=== PATIENT | female | born 1985 | race Caucasian/White ===

== ENCOUNTER 2017-12-07 19:52 | Emergency (ER) | payer OTHER ==
[2017-12-07 20:35] LABS: ABS Basophils 0.1 10^3/ul (0-0.2); ABS Eosinophils 0 10^3/ul (0-0.6); ABS Lymphocytes 2.8 10^3/ul (1.0-4.8); ABS Monocytes 0.6 10^3/ul (0-0.8); ABS Neutrophils 7.4 10^3/ul (1.5-7.7); ABS Nucleated RBC 0 10^3/ul; Eosinophil % 0.2 % (0-6); Hematocrit 38 % (35-47); Hemoglobin 12.8 g/dl (12.0-16.0); Lymphocyte % 25.6 % (25-47); Mean Corpuscular HGB Conc 33 g/dl (31-36); Mean Corpuscular Hemoglobin 26 pg (27-31); Mean Corpuscular Volume 77 fL (80-97); Mean Platelet Volume 7.3 um3 (7.4-10.4); Nucleated Red Blood Cells % 0.1; Platelet Count 353 10^3/ul (150-450); Red Blood Count 4.98 10^6/ul (4.0-5.4); Red Cell Distribution Width 17 % (10.5-15); White Blood Count 10.8 10^3/ul (3.5-10.8)
[2017-12-07 20:38] LABS: Urine Appearance Cloudy; Urine Blood Negative (Negative); Urine Color Yellow; Urine Ketones 1+ (Negative); Urine Protein Negative (Negative); Urine Specific Gravity 1.027 (1.010-1.030); Urine Urobilinogen Negative (Negative)
--- NOTE | 2017-12-07 21:06 | ED ---
Edilson Hood Elizabeth, scribed for Kenny Zamora MD on 12/07/17 at 2024 . Psychiatric Complaint - HPI Summary HPI Summary: This patient is a 32 year old F presenting to [facility] with a chief complaint of increased anxiety that began today. Symptoms aggravated by nothing. Symptoms alleviated by nothing. Patient reports hyperventilating and uncontrollable crying today. She reports difficulty sleeping at night, difficulty getting out of bed during the day, feeling worried, feeling uncomfortable being alone for the last year. Pt notes that she has no primary care physician and therefore has not been prescribed any medications. Per triage note, pt denies SI or HI. - History Of Current Complaint Chief Complaint: EDPsychosocial Time Seen by Provider: 12/07/17 20:09 Hx Obtained From: Patient Onset/Duration: Sudden Onset, Resolved Timing: Intermittent Episode Lasting - minutes Severity Initially: Moderate Severity Currently: Mild Character: Anxious Aggravating Factor(s): Nothing Alleviating Factor(s): Nothing Associated Signs And Symptoms: Positive: Sleep Disturbance Has Suicidal: Denies: Thoughts Has Homicidal: Denies: Thoughts - Allergies/Home Medications Allergies/Adverse Reactions: Allergies Allergy/AdvReac Type Severity Reaction Status Date / Time No Known Allergies Allergy Verified 12/07/17 20:00 PMH/Surg Hx/FS Hx/Imm Hx Opthamlomology History: Denies: Hx Legally Blind EENT History: Denies: Hx Deafness Infectious Disease History: No Infectious Disease History: Denies: Traveled Outside the [place] in Last 30 Days - Family History Known Family History: Positive: Unknown - Social History Alcohol Use: Occasionally Substance Use Type: Reports: None Smoking Status (MU): Never Smoked Tobacco Review of Systems Negative: Fever Negative: Chest Pain Negative: Cough Negative: Vomiting Psychological: Other - insomnia at night, lethargy during the day, uncontrollable crying Positive: Anxious All Other Systems Reviewed And Are Negative: Yes Physical Exam - Summary Physical Exam Summary: Appearance: The patient is well-nourished in no acute distress and in no acute pain. Skin: The skin is warm and dry and skin color reflects adequate perfusion. HEENT: The head is normocephalic and atraumatic. The pupils are equal and reactive. The conjunctivae are clear and without drainage. Nares are patent and without drainage. Mouth reveals moist mucous membranes and the throat is without erythema and exudate. The external ears are intact. The ear canals are patent and without drainage. The tympanic membranes are intact. Neck: the neck is supple with full range of motion and non-tender. There are no carotid bruits. There is no neck vein distension. Respiratory: Chest is non-tender. Lungs are clear to auscultation and breath sounds are symmetrical and equal. Cardiovascular: Heart is regular rhythm and tachycardic. There is no murmur or rub auscultated. There is no peripheral edema and pulses are symmetrical and equal. Abdomen: The abdomen is soft and non-tender. There are normal bowel sounds heard in all four quadrants and there is no organomegaly palpated. Musculoskeletal: There is no back tenderness noted. Extremities are non-tender with full range of motion. There is good capillary refill. There is no peripheral edema or calf tenderness elicited. Neurological: Patient is alert and oriented to person, place and time. The patient has symmetrical motor strength in all four extremities. Cranial nerves are grossly intact. Deep tendon reflexes are symmetrical and equal in all four extremities. Psychiatric: The patient has an appropriate affect and does not exhibit any anxiety or depression. Triage Information Reviewed: Yes Vital Signs On Initial Exam: Initial Vitals Temp Pulse Resp BP Pulse Ox 98.8 F 73 16 131/73 100 12/07/17 19:54 12/07/17 19:54 12/07/17 19:54 12/07/17 19:54 12/07/17 19:54 Vital Signs Reviewed: Yes Diagnostics - Vital Signs Vital Signs Temp Pulse Resp BP Pulse Ox 12/07/17 19:54 98.8 F 73 16 131/73 100 - Laboratory Lab Results: Lab Results 12/07/17 12/07/17 12/07/17 Range/Units 20:26 20:29 20:29 WBC 10.8 (3.5-10.8) 10^3/ul RBC 4.98 (4.0-5.4) 10^6/ul Hgb 12.8 (12.0-16.0) g/dl Hct 38 (35-47) % MCV 77 L (80-97) fL MCH 26 L (27-31) pg MCHC 33 (31-36) g/dl RDW 17 H (10.5-15) % Plt Count 353 (150-450) 10^3/ul MPV 7.3 L (7.4-10.4) um3 Neut % (Auto) 68.4 (38-83) % Lymph % (Auto) 25.6 (25-47) % [place] % (Auto) 5.1 (0-7) % Eos % (Auto) 0.2 (0-6) % Baso % (Auto) 0.7 (0-2) % Absolute Neuts (auto) 7.4 (1.5-7.7) 10^3/ul Absolute Lymphs (auto) 2.8 (1.0-4.8) 10^3/ul Absolute Monos (auto) 0.6 (0-0.8) 10^3/ul Absolute Eos (auto) 0 (0-0.6) 10^3/ul Absolute Basos (auto) 0.1 (0-0.2) 10^3/ul Absolute Nucleated RBC 0 10^3/ul Nucleated RBC % 0.1 Sodium 139 (139-145) mmol/L Potassium 3.5 (3.5-5.0) mmol/L Chloride 104 (101-111) mmol/L Carbon Dioxide 27 (22-32) mmol/L Anion Gap 8 (2-11) mmol/L BUN 14 (6-24) mg/dL Creatinine 0.87 (0.51-0.95) mg/dL Est GFR ( Amer) 96.4 (>60) Est GFR (Non-Af Amer) 75.0 (>60) BUN/Creatinine Ratio 16.1 (8-20) Glucose 120 H (70-100) mg/dL Calcium 9.4 (8.6-10.3) mg/dL Total Bilirubin 0.60 (0.2-1.0) mg/dL AST 14 (13-39) U/L ALT 10 (7-52) U/L Alkaline Phosphatase 52 (34-104) U/L Total Protein 6.9 (6.4-8.9) g/dL Albumin 4.1 (3.2-5.2) g/dL Globulin 2.8 (2-4) g/dL Albumin/Globulin Ratio 1.5 (1-3) TSH Pending Beta HCG, Quant < 0.60 mIU/mL Urine Color Yellow Urine Appearance Cloudy Urine pH 5.0 (5-9) Ur Specific [place] 1.027 (1.010-1.030) Urine Protein Negative (Negative) Urine Ketones 1+ A (Negative) Urine Blood Negative (Negative) Urine Nitrate Negative (Negative) Urine Bilirubin Negative (Negative) Urine Urobilinogen Negative (Negative) Ur Leukocyte Esterase Trace A (Negative) Urine WBC (Auto) 2+(11-20/hpf) A (Absent) Urine RBC (Auto) Absent (Absent) Ur Squamous Epith Cells Present A (Absent) Urine Bacteria Absent (Absent) Urine Glucose Negative (Negative) Salicylates < 2.50 (<30) mg/dL Urine Opiates Screen (None Detect) Acetaminophen < 15 mcg/mL Ur Barbiturates Screen (None Detect) Ur Phencyclidine Scrn (None Detect) Ur Amphetamines Screen (None Detect) U Benzodiazepines Scrn (None Detect) Urine Cocaine Screen (None Detect) U Cannabinoids Screen (None Detect) Serum Alcohol < 10 (<10) mg/dL 12/07/17 Range/Units 20:29 WBC (3.5-10.8) 10^3/ul RBC (4.0-5.4) 10^6/ul Hgb (12.0-16.0) g/dl Hct (35-47) % MCV (80-97) fL MCH (27-31) pg MCHC (31-36) g/dl RDW (10.5-15) % Plt Count (150-450) 10^3/ul MPV (7.4-10.4) um3 Neut % (Auto) (38-83) % Lymph % (Auto) (25-47) % [place] % (Auto) (0-7) % Eos % (Auto) (0-6) % Baso % (Auto) (0-2) % Absolute Neuts (auto) (1.5-7.7) 10^3/ul Absolute Lymphs (auto) (1.0-4.8) 10^3/ul Absolute Monos (auto) (0-0.8) 10^3/ul Absolute Eos (auto) (0-0.6) 10^3/ul Absolute Basos (auto) (0-0.2) 10^3/ul Absolute Nucleated RBC 10^3/ul Nucleated RBC % Sodium (139-145) mmol/L Potassium (3.5-5.0) mmol/L Chloride (101-111) mmol/L Carbon Dioxide (22-32) mmol/L Anion Gap (2-11) mmol/L BUN (6-24) mg/dL Creatinine (0.51-0.95) mg/dL Est GFR ( Amer) (>60) Est GFR (Non-Af Amer) (>60) BUN/Creatinine Ratio (8-20) Glucose (70-100) mg/dL Calcium (8.6-10.3) mg/dL Total Bilirubin (0.2-1.0) mg/dL AST (13-39) U/L ALT (7-52) U/L Alkaline Phosphatase (34-104) U/L Total Protein (6.4-8.9) g/dL Albumin (3.2-5.2) g/dL Globulin (2-4) g/dL Albumin/Globulin Ratio (1-3) TSH Beta HCG, Quant mIU/mL Urine Color Urine Appearance Urine pH (5-9) Ur Specific [place] (1.010-1.030) Urine Protein (Negative) Urine Ketones (Negative) Urine Blood (Negative) Urine Nitrate (Negative) Urine Bilirubin (Negative) Urine Urobilinogen (Negative) Ur Leukocyte Esterase (Negative) Urine WBC (Auto) (Absent) Urine RBC (Auto) (Absent) Ur Squamous Epith Cells (Absent) Urine Bacteria (Absent) Urine Glucose (Negative) Salicylates (<30) mg/dL Urine Opiates Screen None detected (None Detect) Acetaminophen mcg/mL Ur Barbiturates Screen None detected (None Detect) Ur Phencyclidine Scrn None detected (None Detect) Ur Amphetamines Screen None detected (None Detect) U Benzodiazepines Scrn None detected (None Detect) Urine Cocaine Screen Presumptive positive A (None Detect) U Cannabinoids Screen None detected (None Detect) Serum Alcohol (<10) mg/dL Result Diagrams: 12/07/17 20:29 12/07/17 20:29 Lab Statement: Any lab studies that have been ordered have been reviewed, and results considered in the medical decision making process. Course/Dx - Course Course Of Treatment: Ms. Munson presents C/O anxiety but relates some depression signs. She has been medically cleared and is going to [facility] for a M[facility]. - Differential Dx/Clinical Impression Provider Diagnosis: Anxiety and depression Discharge - Sign-Out/Discharge Documenting (check all that apply): Sign-Out Patient Signing out patient TO: Jo Ann Pinzon - Discharge Plan Condition: Stable Referrals: No Primary Care Phys,NOPCP [Primary Care Provider] - - Billing Disposition and Condition Condition: STABLE The documentation as recorded by the Edilson aguillon Elizabeth accurately reflects the service I personally performed and the decisions made by me, Kenny Zamora MD.
--- NOTE | 2017-12-07 22:17 | ED ---
Harshad Hood Rebecca, scribed for Jo Ann Pinzon MD on 12/07/17 at 2213 . Progress - Progress Note Progress Note: Pt was signed out by Dr. Zamora, pending dispo, awaiting MHE. Course/Dx - Course Course Of Treatment: Pt was signed out by Dr. Zamora, pending dispo, awaiting MHE. Upon completion of MHE and consultation with Dr. Pugh, it ahs been determined that the pt will be D/C to home. Dr. Pugh was not willing to make recommendations on her medications, as he would like her to follow up with a PCP and mental health. She will be D/C to home with Dx of anxiety. - Diagnoses Provider Diagnoses: Anxiety Discharge - Sign-Out/Discharge Documenting (check all that apply): Discharge/Admit/Transfer - Discharge, Receiving Sign-Out Receiving patient FROM: Kenny Zamora - Discharge Plan Condition: Stable Disposition: HOME Referrals: [facility]YSICIAN REFERRAL [Outside] No Primary Care Phys,NOPCP [Primary Care Provider] - The documentation as recorded by the Harshad aguillon Rebecca accurately reflects the service I personally performed and the decisions made by Jeromy infante Abdul, MD.
[2017-12-07 22:20] VITALS: BP 128/80
== END 2017-12-07 22:58 | disposition home or self-care (01) ==
LOC: ED 19:52
DX: F41.9 Anxiety disorder, unspecified (principal); G47.9 Sleep disorder, unspecified; F32.9 Major depressive disorder, single episode, unspecified
CPT/HCPCS: 36415; 80053; 80307; 80320; 80329; 81003; 81015; 84443; 84702; 85025; 87086; 99284; G0480

== ENCOUNTER 2019-04-04 14:26 | Emergency (ER) | payer OTHER ==
[2019-04-04 14:49] VITALS: BP 126/87
[2019-04-04] MEDS ORDERED: Ibuprofen TAB* 600 MG PO ONE (15:06)
--- NOTE | 2019-04-04 15:17 | UC ---
General HPI - HPI Summary HPI Summary: 33-year-old woman comes in with a chief complaint of injury sustained in a fall down some stairs last night. She reports she tripped and fell at the top of 9 stairs and fell about retirement down. She struck her forehead and her left knee. No loss of consciousness no nausea no vomiting. Does have occasional blurry vision but no loss of vision or visual field deficit. No difficulty with speech no weakness or numbness. Has about a 7 out of 10 frontal headache right at the spot where she struck her head. Her neck also hurts on the sides. No pain in the arms. The left knee is swollen where she struck right over the kneecap. She had a laceration that it did bleed some but the bleeding stopped and now it's a scab. Does have pain with ambulation and palpation of the forehead and of the left knee. Denies any chest pain or abdominal pain change in bowel or bladder. Not on any blood thinners. Patient notes a diffuse erythematous scattered rash on her body that's started this morning. It is itchy. Reminds patient of allergic reaction. She states she's had this before and has sensitive skin. No difficulty breathing or swallowing. - History of Current Complaint Chief Complaint: UCTrauma Stated Complaint: LEFT LEG PAIN, FALL HEAD PAIN Time Seen by Provider: 04/04/19 14:55 Hx Last Menstrual Period: 03/26/19 Pain Intensity: 8 - Allergy/Home Medications Allergies/Adverse Reactions: Allergies Allergy/AdvReac Type Severity Reaction Status Date / Time No Known Allergies Allergy Verified 04/04/19 14:49 PMH/Surg Hx/FS Hx/Imm Hx Previously Healthy: Yes - Surgical History Surgical History: Yes Surgery Procedure, Year, and Place: breast redux. tubal ligation. ankle. tonsils. c-sect x 3 - Family History Known Family History: Positive: Unknown - Social History Alcohol Use: Occasionally Substance Use Type: None Smoking Status (MU): Never Smoked Tobacco Review of Systems All Other Systems Reviewed And Are Negative: Yes Constitutional: Positive: Negative Skin: Positive: Other - see hpi Eyes: Positive: Blurred Vision ENT: Positive: Negative Respiratory: Positive: Negative Cardiovascular: Positive: Negative Gastrointestinal: Positive: Negative Genitourinary: Positive: Negative Motor: Positive: Negative Neurovascular: Positive: Negative Musculoskeletal: Positive: Other: - see hpi Neurological: Positive: Headache Psychological: Positive: Negative Is Patient Immunocompromised?: No Physical Exam Triage Information Reviewed: Yes Appearance: Well-Appearing, No Pain Distress, Well-Nourished Vital Signs: Initial Vital Signs Temp 98.8 F 04/04/19 14:41 Pulse 87 04/04/19 14:41 Resp 16 04/04/19 14:41 BP 126/87 04/04/19 14:41 Pulse Ox 99 04/04/19 14:41 Vital Signs Reviewed: Yes Eye Exam: Normal Eyes: Positive: Conjunctiva Clear, Other: - PERRLA EOMI no photophobia ENT: Positive: TMs normal - No hemotympanum. Negative: Nasal drainage Neck: Positive: Supple, Other: - There is mild tenderness to palpation in the posterior neck on the lateral aspects. It is not tender to palpation posterior midline over the spinous processes. Respiratory: Positive: Chest non-tender, Lungs clear, Normal breath sounds, No respiratory distress Cardiovascular: Positive: RRR Musculoskeletal: Positive: Strength Intact, Other: - Left knee is swollen in the anterior aspect and tender to palpation in the anterior aspect. It has full range of motion but with some pain with full flexion and extension. Stable to exam. Neurological: Positive: Alert Psychological: Positive: Age Appropriate Behavior Skin: Positive: Other - There is an abrasion with a partial-thickness laceration of approximately 2 cm in length on the anterior left knee over the kneecap. There is no drainage there is no acute bleeding at this time there is a scab over the laceration. There is no streaking. There is diffuse scattered slightly raised erythematous blanching rash on the arms and lower legs. Course/Dx - Course Course Of Treatment: Steam Gigger: Emy Villagomez S ([id number]) Butter Grader: YUNG (YUNG) Report Date: 04/04/2019 15:05:00 Report Status: Final Start of Report Content Patient Name: KAVITA LITTLE Medical Record#: [id number] Ordering Physician: Talon Estrada MD Acct.#: [id number] : 08/1985 Age: 33 Sex: F Location: [facility] Exam Date: 04/04/19 1505 ADM Status: REG ER Order Information: KNEE LEFT 4+ VWS Accession Number: [id number] CPT: 38500 Indication: Left knee pain. 4 views of the left knee demonstrates no fracture or dislocation. Joint spaces well-preserved. No significant joint effusion is noted. IMPRESSION: No fracture of the left knee is noted. < Electronically signed by Emy Villagomez MD in OV> 04/04/19 160 Dictated By: Emy Villagomez MD Dictated Date/Time: 04/04/19 160 Transcribed Date/Time: 04/04/19 160 Copy to: CC:No Primary Care Phys,NOPCP ; Talon Estrada MD Imaging - [facility] [address] [address] ph [phone]) ph ([phone]) ph ([phone]) ===== End of Report Content Steam Gigger: Emy Villagomez S, ([id number]) Butter Grader: YUNG, (NUANCE) Report Date: 04/04/2019 15:05:00 Report Status: Final Start of Report Content Patient Name: KAVITA LITTLE Medical Record#: [id number] Ordering Physician: Talon Estrada MD Acct.#: [id number] : 08/1985 Age: 33 Sex: F Location: [facility] Exam Date: 04/04/19 1505 ADM Status: REG ER Order Information: SP CERVICAL 4+VWS Accession Number: [id number] CPT: 19047 Indication: Neck pain. 5 views of the cervical spine demonstrates straightening of the normal lordosis. There is no fracture or dislocation noted. No other bone or joint abnormality is noted. IMPRESSION: No fracture of the cervical spine is noted. <Electronically signed by Emy Villagomez MD in OV> 04/04/191604 Dictated By: Emy Villagomez MD Dictated Date/Time: 04/04/191604 Transcribed Date/Time: 04/04/191604 Copy to: CC:No Primary Care Phys,NOPCP ; Talon Estrada MD Imaging - [facility] Imaging - [facility] [address] [address] ph [phone] ph ) ph ([phone]) End of Report Content - Diagnoses Provider Diagnosis: Head injury, Cervical strain, Contusion of left knee, Allergic reaction Discharge ED - Sign-Out/Discharge Documenting (check all that apply): Patient Departure All imaging exams completed and their final reports reviewed: Yes - Discharge Plan Condition: Stable Disposition: HOME Prescriptions: methylPREDNISolone [Medrol Dosepak 4 MG*] 0 mg PO .SEE FILIBERTO INSTRUCTION #1 filiberto Patient Education Materials: Cervical Strain (ED), Head Injury (ED), Knee Pain (ED), General Allergic Reaction (ED) Referrals: [facility] PHYSICIAN REFERRAL [Outside] Sports Medicine Athletic Perf [Provider Group] Additional Instructions: FOLLOW UP WITH SPORTS MEDICINE IF YOUR NECK OR KNEE ARE NOT COMPLETELY IMPROVED. GO TO THE EMERGENCY DEPARTMENT IF YOUR CONDITION WORSENS; PAIN, WEAKNESS, NUMBNESS, CONFUSION, UNEXPLAINED VOMITING, YOU FEEL ILL, DIFFICULTY SWALLOWING OR BREATHING OR ANY QUESTIONS OR CONCERNS. - Billing Disposition and Condition Condition: STABLE Disposition: Home
== END 2019-04-04 16:42 | disposition home or self-care (01) ==
LOC: UCEAST 14:26
DX: S16.1XXA Strain of muscle, fascia and tendon at neck level, initial encounter (principal); S09.90XA Unspecified injury of head, initial encounter; S80.02XA Contusion of left knee, initial encounter; W10.9XXA Fall (on) (from) unspecified stairs and steps, initial encounter; Y93.9 Activity, unspecified; Y92.9 Unspecified place or not applicable; T78.40XA Allergy, unspecified, initial encounter; X58.XXXA Exposure to other specified factors, initial encounter
CPT/HCPCS: 72050; 99213; A9270-GY; G0463